=== PATIENT | male | born 1990 | race Caucasian/White ===

== ENCOUNTER 2020-12-08 13:52 | Emergency (ER) | payer MEDICARE, OTHER ==
[2020-12-08 15:05] LABS: BASOPHIL 0.4 % (0-2); EOSINOPHIL 1.3 % (0-5); HCT 44.7 % (42.0-52.0); HGB 15.3 g/dl (13.2-18.0); LYMPHOCYTE 28.2 % (15-48); MCH 29.2 pg (25.0-31.0); MCHC 34.2 g/dL (32.0-36.0); MCV 85.3 fL (78.0-100.0); MONOCYTE 8.4 % (0-12); MPV 9.7 fL (6.0-9.5); NEUTROPHIL 61.5 % (41-80); NRBC 0; PLT 344 K/uL (150-400); RBC 5.24 M/uL (4.70-6.00); RDW 12.6 % (11.5-14.0); WBC 8.5 K/uL (4.0-10.5)
[2020-12-08 15:12] LABS: BILIRUBIN NEGATIVE (NEGATIVE); BLOOD NEGATIVE Ery/uL (NEGATIVE); CLARITY CLEAR (CLEAR); COLOR YELLOW (YELLOW); GLUCOSE (U) NORMAL (NORMAL); LEUKOCYTES NEGATIVE Leu/uL (NEGATIVE); NITRITE NEGATIVE (NEGATIVE); PROTEIN NEGATIVE (NEGATIVE); SPECIFIC GRAVITY >=1.030 (1.001-1.030); UROBILINOGEN 0.2 mg/dL (0.2-1.0)
[2020-12-08 15:17] LABS: AMPHETAMINES NEGATIVE (NEGATIVE); BARBITURATES NEGATIVE (NEGATIVE); ECSTASY (MDMA) NEGATIVE (NEGATIVE); MARIJUANA (THC) NEGATIVE (NEGATIVE); METHADONE NEGATIVE (NEGATIVE); OPIATES NEGATIVE (NEGATIVE); OXYCODONE NEGATIVE (NEGATIVE)
[2020-12-08 15:27] LABS: BUN/CREAT RATIO (CALC) 21.8 RATIO; CREATININE 1.01 mg/dL (0.67-1.17); POTASSIUM 3.9 mmol/L (3.5-5.1)
== END 2020-12-08 16:23 | disposition home or self-care (01) ==
LOC: FER 13:52
PROVIDERS: Nurse Practitioner Family
DX: S83.92XA Sprain of unspecified site of left knee, initial encounter (principal); Z88.8 Allergy status to other drugs, medicaments and biological substances; X58.XXXA Exposure to other specified factors, initial encounter; Y92.009 Unspecified place in unspecified non-institutional (private) residence as the place of occurrence of the external cause
CPT/HCPCS: 36415; 73564; 80048; 80305; 81003; 85025; G0480

== ENCOUNTER 2021-06-26 19:42 | Emergency (ER) | payer MEDICARE, OTHER ==
[2021-06-26 20:21] LABS: BASOPHIL 0.1 % (0-2); EOSINOPHIL 1.6 % (0-5); HCT 42.1 % (42.0-52.0); HGB 14.4 g/dl (13.2-18.0); LYMPHOCYTE 32.9 % (15-48); MCH 29.4 pg (25.0-31.0); MCHC 34.2 g/dL (32.0-36.0); MCV 86.1 fL (78.0-100.0); MONOCYTE 7.3 % (0-12); MPV 9.8 fL (6.0-9.5); NEUTROPHIL 57.8 % (41-80); NRBC 0; PLT 311 K/uL (150-400); RBC 4.89 M/uL (4.70-6.00); RDW 12.9 % (11.5-14.0); WBC 9.1 K/uL (4.0-10.5)
[2021-06-26 20:40] LABS: ALBUMIN 3.9 g/dL (3.4-5.0); BILIRUBIN - TOTAL 0.4 mg/dL (0.2-1.0); BUN/CREAT RATIO (CALC) 14.9 RATIO; CREATININE 1.21 mg/dL (0.67-1.17); GLOBULIN (CALCULATION) 3.2 g/dL; MAGNESIUM 2.1 mg/dL (1.8-2.4); POTASSIUM 4.1 mmol/L (3.5-5.1); TOTAL PROTEIN 7.1 g/dL (6.4-8.2)
[2021-06-26 23:19] LABS: BILIRUBIN NEGATIVE (NEGATIVE); BLOOD NEGATIVE Ery/uL (NEGATIVE); CLARITY CLEAR (CLEAR); COLOR YELLOW (YELLOW); GLUCOSE (U) NORMAL (NORMAL); LEUKOCYTES NEGATIVE Leu/uL (NEGATIVE); NITRITE NEGATIVE (NEGATIVE); PROTEIN NEGATIVE (NEGATIVE); SPECIFIC GRAVITY 1.015 (1.001-1.030)
[2021-06-26 23:34] LABS: AMPHETAMINES NEGATIVE (NEGATIVE); BARBITURATES NEGATIVE (NEGATIVE); ECSTASY (MDMA) NEGATIVE (NEGATIVE); MARIJUANA (THC) NEGATIVE (NEGATIVE); METHADONE NEGATIVE (NEGATIVE); OPIATES NEGATIVE (NEGATIVE); OXYCODONE NEGATIVE (NEGATIVE)
== END 2021-06-26 23:15 | disposition home or self-care (01) ==
LOC: FER 19:42
PROVIDERS: Emergency Medicine
DX: R55 Syncope and collapse (principal); T67.5XXA Heat exhaustion, unspecified, initial encounter; Z88.8 Allergy status to other drugs, medicaments and biological substances; X58.XXXA Exposure to other specified factors, initial encounter
CPT/HCPCS: 36415; 70450; 71250; 80053; 80305; 81003; 83735; 84484; 85025; 93005; J1885; J2405; J7030